=== PATIENT | female | born 1975 | race Caucasian/White ===

== ENCOUNTER 2020-03-13 05:58 | Emergency (ER) | payer MEDICAID ==
[~2020-03-13] VITALS: Ht 167.6 cm; Wt 137.4 kg
[2020-03-13] MEDS ORDERED: HYDROmorphone 1 MG/ML, 1ML INJ ONE (06:25)
[2020-03-13] MEDS ORDERED: ONDANSETRON 2MG/ML, 2ML ONE (06:26)
[2020-03-13] MEDS ORDERED: HYDROmorphone 2 MG/ML, 1ML IVPush PRN (06:30)
[2020-03-13] MEDS ORDERED: ONDANSETRON 2MG/ML, 2ML IVPush ONE (06:30)
[2020-03-13] MEDS ORDERED: SODIUM CHLORIDE FLUSH 10ML SYR IVF ONE (06:30)
--- NOTE | 2020-03-13 06:36 | NUR ---
Pt presents with severe pain in left flank radiating to LUQ abdomen since midnight with associated nausea as well as hypertension. PIV established, labs drawn, attached to monitors, and medicated per emar. Xray at bedside. pending CT
--- NOTE | 2020-03-13 06:38 | NUR ---
Pt to CT at this time
[2020-03-13 06:52] LABS: BASOPHILS % (AUTO) 1 % (0-1); EOSINOPHILS % (AUTO) 0 % (1-7); INTERNATIONAL NORMALIZED RATIO 1.04 (0.93-1.1); LYMPHOCYTES % (AUTO) 14 % (22-44); MEAN CORPUSCULAR HEMOGLOBIN 30.3 pg (27.0-34.8); MEAN CORPUSCULAR HGB CONC 33.7 g/dL (32.4-35.8); MEAN PLATELET VOLUME 8.2 fL (7.4-10.4); MONOCYTES % (AUTO) 6 % (2-9); NEUTROPHILS % (AUTO) 79 % (42-75); PLATELET COUNT 324 x10^3/uL (130-400); PROTHROMBIN TIME 10.7 Seconds (9.6-11.5); RED BLOOD COUNT 5.18 x10^6/uL (3.82-5.3); RED CELL DISTRIBUTION WIDTH 12.8 % (9.6-15.2)
[2020-03-13 06:58] LABS: ALANINE AMINOTRANSFERASE 26 U/L (12-78); ALBUMIN 3.5 g/dL (3.4-5.0); ANION GAP 9 mmol/L (5-15); CHLORIDE 107 mmol/L (98-107)
[2020-03-13 07:00] LABS: ALKALINE PHOSPHATASE 67 U/L (45-117); BILIRUBIN,TOTAL 0.6 mg/dL (0.2-1.0); CREATININE 0.93 mg/dL (0.55-1.02); TOTAL PROTEIN 7.9 g/dL (6.4-8.2); TROPONIN I < 0.015 ng/mL (0.000-0.045)
[2020-03-13] MEDS ORDERED: OMNIPAQUE 350 MG/ML, 100ML BOTTLE ONE (07:09)
[2020-03-13 07:13] LABS: MD NO
--- NOTE | 2020-03-13 07:20 | NUR ---
Pt has improved BP, ERP aaware. Pt states pain inproved, low level nausea.
[2020-03-13] MEDS ORDERED: KETOROLAC 30 MG/1 ML IVPush ONE (08:00)
--- NOTE | 2020-03-13 08:12 | NUR ---
straight cathed per law, ua walked to lab. as
[2020-03-13 08:23] LABS: MICROSCOPIC AUTO
[2020-03-13 09:15] VITALS: BP 151/68
== END 2020-03-13 09:19 | disposition home or self-care (01) ==
LOC: ED 07:52
DX: N13.2 Hydronephrosis with renal and ureteral calculous obstruction (principal); R00.0 Tachycardia, unspecified; I25.2 Old myocardial infarction; R07.9 Chest pain, unspecified
CPT/HCPCS: 36415; 71045; 71275; 74175; 74176; 80053; 81001; 83690; 84484; 85025; 85610; 85730; 93005; 96374; 96375; 99285; J1170; J2405; Q9967

== ENCOUNTER 2020-03-16 18:31 | Emergency (ER) | payer MEDICAID ==
[~2020-03-16] VITALS: Ht 167.6 cm; Wt 137.4 kg
--- NOTE | 2020-03-16 18:40 | NUR ---
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
--- NOTE | 2020-03-16 18:57 | NUR ---
ASSESSMENT MADE. CHART UP FOR MD TO SEE.
--- NOTE | 2020-03-16 18:58 | NUR ---
PA at bedside.
[2020-03-16] MEDS ORDERED: KETOROLAC 30 MG/1 ML ONE (19:06)
[2020-03-16 19:19] LABS: BASOPHILS % (AUTO) 1 % (0-1); EOSINOPHILS % (AUTO) 2 % (1-7); LYMPHOCYTES % (AUTO) 20 % (22-44); MEAN CORPUSCULAR HEMOGLOBIN 29.9 pg (27.0-34.8); MEAN CORPUSCULAR HGB CONC 33.5 g/dL (32.4-35.8); MEAN PLATELET VOLUME 8.2 fL (7.4-10.4); MONOCYTES % (AUTO) 8 % (2-9); NEUTROPHILS % (AUTO) 70 % (42-75); PLATELET COUNT 317 x10^3/uL (130-400); RED CELL DISTRIBUTION WIDTH 12.9 % (9.6-15.2)
[2020-03-16 19:26] LABS: MD NO
[2020-03-16] MEDS ORDERED: KETOROLAC 30 MG/1 ML IM ONE (19:30)
[2020-03-16 19:34] LABS: ALANINE AMINOTRANSFERASE 19 U/L (12-78); ALBUMIN 3.4 g/dL (3.4-5.0); ANION GAP 6 mmol/L (5-15); CALCIUM 8.7 mg/dL (8.5-10.1); CHLORIDE 107 mmol/L (98-107); CREATININE 1.48 mg/dL (0.55-1.02)
[2020-03-16 19:38] LABS: ALKALINE PHOSPHATASE 69 U/L (45-117); BILIRUBIN,TOTAL 0.4 mg/dL (0.2-1.0); TOTAL PROTEIN 7.6 g/dL (6.4-8.2)
--- NOTE | 2020-03-16 19:46 | NUR ---
shanice rn: straight cath ua done, pt tolerated well. specimen taken to lab.
[2020-03-16 20:02] LABS: MICROSCOPIC NOT IND
--- NOTE | 2020-03-16 20:23 | NUR ---
ERP at bedside for re-evaluation.
[2020-03-16 21:04] VITALS: BP 167/92
--- NOTE | 2020-03-16 21:04 | NUR ---
patient discharged with prescriptions and instruction. verbalized understanding.
== END 2020-03-16 21:07 ==
LOC: ED 20:30
DX: N20.1 Calculus of ureter (principal); R00.0 Tachycardia, unspecified; I10 Essential (primary) hypertension
CPT/HCPCS: 36415; 80053; 81003; 84703; 85025; 93005; 96372; 99284; J1885